=== PATIENT | female | born 1955 | race Hispanic/Latino ===

== ENCOUNTER 2024-02-28 10:04 | Emergency (ER) | payer MEDICARE ==
[~2024-02-28] VITALS: Ht 162.6 cm; Wt 72.6 kg
[2024-02-28 10:41] VITALS: PULSE 66; RESP 17; TEMP 98.1; O2SAT 100
[2024-02-28] MEDS ORDERED: ULTRAM 50MG50 MG PO (12:11)
== END 2024-02-28 12:31 | disposition home or self-care (01) ==
LOC: ER 10:14
DX: M84.374A Stress fracture, right foot, initial encounter for fracture (principal); X58.XXXA Exposure to other specified factors, initial encounter; Y93.01 Activity, walking, marching and hiking; Y92.89 Other specified places as the place of occurrence of the external cause; I10 Essential (primary) hypertension; E11.9 Type 2 diabetes mellitus without complications
CPT/HCPCS: 99283

== ENCOUNTER 2024-03-14 12:27 | Emergency (ER) | payer MEDICARE ==
[~2024-03-14] VITALS: Ht 162.6 cm; Wt 72.6 kg
[~2024-03-14 12:27] MED LIST: ULTRAM 50MG50 MG PO
[2024-03-14 12:34] VITALS: PULSE 74; RESP 18; TEMP 98.2; O2SAT 99
== END 2024-03-14 12:54 | disposition home or self-care (01) ==
LOC: ER 12:32
DX: M79.671 Pain in right foot (principal); M84.377D Stress fracture, right toe(s), subsequent encounter for fracture with routine healing; I10 Essential (primary) hypertension; E11.9 Type 2 diabetes mellitus without complications
CPT/HCPCS: 99282